=== PATIENT | female | born 1965 | race African-American/Black ===

== ENCOUNTER → 2016-04-29 | Outpatient (CLI) | payer OTHER ==
[~2016-04-29] MED LIST: CALA180T PO; CHOL50006 PO; ESTR0.5T3 PO; FEXO180 PO; FLUT50SP; FLUT50SP EACH NARE; FLUTI110I INH; FLUTI220I INH; LORTA5 PO; MONT10TA2 PO; PROM25SU8 PO; SALM50I INH; VERA80TA PO
[2016-04-29 08:49] LABS: BETA HCG QUANT LESS THAN 1 MIU/ML (0-5)
== END ==
LOC: CLAB 07:43
PROVIDERS: ATTEND Obstetrics & Gynecology
DX: O02.0 Blighted ovum and nonhydatidiform mole (principal)
CPT/HCPCS: 36415; 84702

== ENCOUNTER → 2016-05-21 | Outpatient (CLI) | payer OTHER ==
[~2016-05-21] VITALS: Ht 161.3 cm; Wt 58.9 kg
[~2016-05-21] MED LIST changes: +INSULIN HUMAN REGULAR 1,000 UNITS/10 ML VIAL SQ PRN; +LACTATED RINGER'S 1000 ML IV SCH; +METOPROLOL TARTRATE 25 MG TAB PO PRN; +PROPOFOL 200 MG/20 ML AMP IV ONE; +SODIUM CHLORID 0.9% 500 ML IV SCH
[2016-05-21 09:39] VITALS: BP 127/77; PULSE 68; RESP 20; TEMP 98.2; O2SAT 98
[2016-05-21 11:22] VITALS: TEMP 98.2
[2016-05-21 11:47] VITALS: BP 110/67; PULSE 71; RESP 18; O2SAT 98
--- NOTE | 2016-05-21 12:38 | MR ---
cc: PLACIDO ALMAGUER,JAH QUIÑONES M.D. DATE: 05/21/2016 1965 PROCEDURE Colonoscopy with polypectomies performed by Dr. Jah Moreau. MEDICATIONS Sedation per anesthesiology. INDICATIONS Screening colonoscopy in this average risk patient. INSTRUMENT The Pentax video colonoscope. SEDATION Per anesthesiology. PROCEDURE After obtaining written informed consent, the patient was placed in the left lateral decubitus position. Adequate sedation was administered. A digital rectal examination was performed. No gross lesions were noted. The colonoscope was placed into the anus and advanced to the cecum. The appendiceal orifice and ileocecal valve appeared normal. A single ascending colon diverticulum was noted. A 5-10 mm proximal ascending colon polyp was removed with snare cautery technique. A smaller sigmoid polyp was also removed with snare cautery technique. Retroflexion of the instrument in the rectum revealed no abnormalities. The instrument was withdrawn. The procedure was terminated. The patient tolerated it well and there were no apparent complications. Upon completion she was sedated and had normal stable vital signs. IMPRESSION 1. Colonoscopy to the cecum. 2. Mild ascending colon diverticulosis. 3. Ascending colon polyp removed with snare cautery. 4. Sigmoid colon polyp removed with snare cautery. DISPOSITION The patient is to be observed per routine postprocedure protocol. She may return home. I recommend a high-fiber diet with lots of fluid daily. We will contact her next week with the polyp histology report and determine timing for follow-up colonoscopy. MD ZULEYMA Klein/AG /11:27 AM /12:17 PM
--- NOTE | 2016-05-21 21:46 | EKG ---
Date Performed: 05/21/2016 Time Performed: 09:52:27 PTAGE: 50 years EKG: Sinus rhythm NORMAL ECG NO PREVIOUS TRACING DOCTOR: Mercedes Fatima Interpretating Date/Time 05/21/2016 21:43:57
== END ==
LOC: HEND 08:58
DX: Z12.11 Encounter for screening for malignant neoplasm of colon (principal); D12.2 Benign neoplasm of ascending colon; D12.5 Benign neoplasm of sigmoid colon; K57.30 Diverticulosis of large intestine without perforation or abscess without bleeding; Z01.810 Encounter for preprocedural cardiovascular examination
CPT/HCPCS: 00810; 45385; 88305; 93005; J7120